=== PATIENT | female | born 1955 | race Caucasian/White ===

== ENCOUNTER 2019-01-08 15:03 | Emergency (ER) | payer MEDICAID ==
[~2019-01-08] VITALS: Ht 154.9 cm; Wt 69.9 kg
[2019-01-08 15:15] VITALS: Ht 154.9 cm; Wt 69.9 kg
[2019-01-08 17:12] VITALS: BP 146/84
== END 2019-01-08 17:13 | disposition home or self-care (01) ==
LOC: ED 15:03
DX: S52.572A Other intraarticular fracture of lower end of left radius, initial encounter for closed fracture (principal); W16.212A Fall in (into) filled bathtub causing other injury, initial encounter; Y93.E1 Activity, personal bathing and showering; Y92.89 Other specified places as the place of occurrence of the external cause; Y99.8 Other external cause status
CPT/HCPCS: Q0092